=== PATIENT | female | born 1945 | race Caucasian/White ===

== ENCOUNTER → 2016-09-30 | Day surgery (SDC) | payer OTHER ==
[~2016-09-30] VITALS: Ht 160 cm; Wt 65.3 kg
[~2016-09-30] MED LIST: BACLOFEN10 M1 PO; CARBIDOPA-LEVO1 EAC7 PO; DIAZEPAM5 M1 PO; LEVEMIR100 UNIT/1 SC; OXCARBAZEPINE PO; VICTOZA 2-0.6 MG/0.1 SC
--- NOTE | 2016-09-30 16:08 | Operative Report ---
Operative/Inv Procedure Report Surgery Date: 09/30/16 Name of Procedure: Open reduction internal fixation right distal radius fracture Pre-Operative Diagnosis: Comminuted fracture right distal radius and ulna Post-Operative Diagnosis: Name Estimated Blood Loss: scant Surgeon/Can Intake Worker: IAN LO,SKYLER MENG Anesthesia: general endotracheal tube Implants: Hand innovations small radial plate Tourniquet: A tourniquet was placed above the elbow and inflated to pressure of 250 mmHg Complications: None Condition: Stable returned to PACU Operative Indication: This is a 71-year-old lady who fell 10 days ago while visiting [place]. She sustained a comminuted intra-articular fracture of her distal radius. She had a preliminary reduction by an orthopedic surgeon but was told that the fracture may require surgery. She was seen in our office 1 week ago and x-rays revealed that the fracture had subsided. We recommended and internal fixation of the fracture and she is now admitted for that procedure Operative/Procedure Note Note: After satisfactory general anesthesia had been obtained the patient had a scalene block administered by the anesthesia department. The right upper extremity was then prepped and draped in the usual sterile fashion. She received preoperative antibiotics. The hand and forearm were exsanguinated with a sterile Esmarch and the tourniquet was a flush inflated to a pressure of 250 mmHg. A longitudinal incision was made at the distal radius on the volar surface directly over the flexor carpi radialis tendon. Dissection continued through the floor of the flexor carpi radialis tendon. The median nerve was retracted ulnarly. The pronator quadratus was then gently dissected off the shaft of the radius. This exposed the comminuted fracture. Traction reduced the fracture anatomically and the position was checked with the mini C-arm. A hand innovations small plate was then selected and placed against the fracture. It was provisionally positioned and held with K wires. Once satisfactory positioning had been obtained the K wire was placed through the proximal row and images were satisfactory. A bicortical screw was then placed in the gliding hole of the plate and provisionally tightened. 4 partially threaded locking screws were then placed through the 4 proximal holes. Each screw hole was measured with the tap prior to insertion of the screw. Screw position was once again checked with the image intensifier. 2 non-threaded screws were then placed through the distal holes. This afforded anatomic reduction of the distal radial fracture. The patient had a small distal fracture of the ulnar shaft at the distal radial ulnar joint. We felt that this was too smaller fragment to attempt reduction. The incision was then copiously irrigated. The pronator was repaired using 2-0 Vicryl sutures. The subcutaneous tissues closed with 2-0 Vicryl and the skin was closed with a 2-0 Prolene subcuticular suture and Steri- Strips. Tourniquet time was 48 minutes dry sterile dressing was applied over the incision followed by light compressive dressing reinforced with a volar fiberglass splint. Blood loss was scant she was returned to the PACU in stable condition Discharge Disposition: PACU
== END ==
LOC: STS 01:46
DX: S52.501A Unspecified fracture of the lower end of right radius, initial encounter for closed fracture (principal); S52.601A Unspecified fracture of lower end of right ulna, initial encounter for closed fracture; W19.XXXA Unspecified fall, initial encounter; E11.9 Type 2 diabetes mellitus without complications; G20 Parkinson's disease; M81.0 Age-related osteoporosis without current pathological fracture
CPT/HCPCS: C1713; J0131; J1100; J2250; J2405